=== PATIENT | female | born 2005 | race Caucasian/White ===

== ENCOUNTER 2023-11-06 17:53 | Emergency (ER) | payer MEDICAID ==
[~2023-11-06] VITALS: Ht 167.6 cm; Wt 54.3 kg
[2023-11-06 18:08] VITALS: BP 133/73; PULSE 105; TEMP 97.9; O2SAT 97
[2023-11-06] MEDS ORDERED: ketorolac trometh inj. 60 MG/2 ML VIAL IM ONE (19:40)
[2023-11-06] MEDS ORDERED: NAPR-56 PO (19:42)
[2023-11-06] MEDS ORDERED: CYCL-1 PO (19:42)
[2023-11-06 19:56] VITALS: RESP 16
== END 2023-11-06 19:57 | disposition home or self-care (01) ==
LOC: ER 17:54
DX: S39.012A Strain of muscle, fascia and tendon of lower back, initial encounter (principal); W19.XXXA Unspecified fall, initial encounter; Y93.89 Activity, other specified; Y92.89 Other specified places as the place of occurrence of the external cause; Y99.8 Other external cause status
CPT/HCPCS: 72100; 96372; 99283; J1885